=== PATIENT | female | born 1950 | race Two or more races ===

== ENCOUNTER 2022-10-22 07:21 | Outpatient (CLI) | payer OTHER | END 2022-10-22 07:22 | disposition home or self-care (01) | LOC: NUCLEAR 07:21 | PROVIDERS: ATTEND Internal Medicine Cardiovascular Disease | DX: I25.118 Atherosclerotic heart disease of native coronary artery with other forms of angina pectoris (principal); R07.9 Chest pain, unspecified | CPT/HCPCS: 78452; 93017; A9500; J0153 ==